=== PATIENT | male | born 1985 | race Hispanic/Latino ===

== ENCOUNTER 2019-12-31 18:07 | Emergency (ER) | payer BC | END 2019-12-31 18:40 | disposition home or self-care (01) | LOC: EDH 18:07 | DX: J06.9 Acute upper respiratory infection, unspecified (principal); Z72.0 Tobacco use | CPT/HCPCS: 99281 ==

== ENCOUNTER 2020-02-20 19:36 | Emergency (ER) | payer BC ==
[2020-02-20] MEDS ORDERED: IBUPROFEN 600 MG TABLET ONE (20:18)
[2020-02-20] MEDS ORDERED: ONDANSETRON ODT 4 MG TAB ONE (20:19)
== END 2020-02-20 21:22 | disposition home or self-care (01) ==
LOC: EDH 19:36
DX: S06.0X0A Concussion without loss of consciousness, initial encounter (principal); W20.8XXA Other cause of strike by thrown, projected or falling object, initial encounter; Y93.89 Activity, other specified; Y92.89 Other specified places as the place of occurrence of the external cause; Y99.8 Other external cause status
CPT/HCPCS: 70450

== ENCOUNTER 2020-04-16 20:45 | Emergency (ER) | payer BC | END 2020-04-16 21:55 | disposition home or self-care (01) | LOC: EDH 20:45 | DX: F41.1 Generalized anxiety disorder (principal); R07.89 Other chest pain | CPT/HCPCS: 93005 ==